=== PATIENT | male | born 1985 | race Caucasian/White ===

== ENCOUNTER 2017-11-03 17:45 | Emergency (ER) | payer SELFPAY ==
[2017-11-03] MEDS ORDERED: Lidocaine 1%* 5 ML VIAL INJ ONE (18:15)
[2017-11-03] MEDS ORDERED: Sulfamethox/Trimethoprim DS 800/160* TAB PO ONE (18:25)
--- NOTE | 2017-11-03 18:25 | ED ---
Skin Complaint - HPI Summary HPI Summary: 32M presents with abscess on neck. He states he has had ta cyst there for 10 years and it has not bothered him. A week ago it started to grow and it burst at work and clear drainage came out. He states it seem to get better and then it got bigger again so he squeezed it and yellow discharge came out. He saw his primary who sent him here for it to be drained. He denies any fever or spreading redness. He has 4/10 pain. He denies any history of MRSA. - History of Current Complaint Chief Complaint: EDGeneral Time Seen by Provider: 11/03/17 17:59 Stated Complaint: ABSCESS ON NECK Pain Intensity: 0 - Allergy/Home Medications Allergies/Adverse Reactions: Allergies Allergy/AdvReac Type Severity Reaction Status Date / Time CRAB Allergy Severe Anaphylatic Uncoded 11/03/17 17:51 Shock PMH/Surg Hx/FS Hx/Imm Hx Endocrine/Hematology History: Denies: Hx Anticoagulant Therapy Cardiovascular History: Denies: Hx Myocardial Infarction Infectious Disease History: No Infectious Disease History: Denies: Traveled Outside the [place] in Last 30 Days - Family History Known Family History: Positive: Hypertension - Social History Alcohol Use: Rare Substance Use Type: Reports: None Type: Cigars Amount Used/How Often: 1 CIGAR A DAY Have You Smoked in the Last Year: Yes Review of Systems Negative: Fever Negative: Chest Pain Negative: Shortness Of Breath Positive: Other - abscess neck All Other Systems Reviewed And Are Negative: Yes Physical Exam Triage Information Reviewed: Yes Vital Signs On Initial Exam: Initial Vitals Temp Pulse Resp BP Pulse Ox 97.0 F 98 18 163/103 99 11/03/17 17:47 11/03/17 17:47 11/03/17 17:47 11/03/17 17:47 11/03/17 17:47 Vital Signs Reviewed: Yes Appearance: Positive: Well-Appearing Skin: Positive: Warm, Dry, Other - 2cm by 4cm abscess with small opening on lateral aspect of right neck Head/Face: Positive: Normal Head/Face Inspection Eyes: Positive: Normal, Conjunctiva Clear Neck: Positive: Supple, No Lymphadenopathy. Negative: Nuchal Rigidity Respiratory/Lung Sounds: Positive: Clear to Auscultation, Breath Sounds Present Cardiovascular: Positive: Normal, RRR Musculoskeletal: Positive: Normal Neurological: Positive: Normal Psychiatric: Positive: Normal Procedures - Incision and Drainage Site: neck Anesthesia: Local Instrument(s): Scalpel Packing: Gauze Diagnostics - Vital Signs Vital Signs Temp Pulse Resp BP Pulse Ox 11/03/17 17:47 97.0 F 98 18 163/103 99 - Laboratory Lab Statement: Any lab studies that have been ordered have been reviewed, and results considered in the medical decision making process. Course/Dx - Course Course Of Treatment: 32M presents with abscess on neck. He states he has had ta cyst there for 10 years and it has not bothered him. A week ago it started to grow and it burst at work and clear drainage came out. He states it seem to get better and then it got bigger again so he squeezed it and yellow discharge came out. He saw his primary who sent him here for it to be drained. He denies any fever or spreading redness. He has 4/10 pain. He denies any history of MRSA. on exam has 2cm by 4cm abscess on right side of neck with small opening present. placed small incision and got 3cc of pus. packed the area. will placed on bactrim until culture comes back and we have follow up in two days for wound check. patient understand and agrees with plan. - Differential Diagnoses - Skin Complaint Differential Diagnoses: Abscess, Cellulitis, Contact Dermatitis - Diagnoses Provider Diagnoses: Abscess Discharge - Discharge Plan Condition: Good Disposition: HOME Prescriptions: Sulfamethox/Trimethoprim DS* [Bactrim DS 800/160 TAB*] 1 tab PO BID #[id number] tab Patient Education Materials: Abscess (ED) Referrals: Non Staff,Doctor [Primary Care Provider] - Additional Instructions: Take antibiotic twice a day for 10 days, first dose given in ED Apply warm compresses to area Take ibuprofen or Tylenol for pain every 6 hours follow up with urgent care or ED in two days for wound recheck Return to ED if develop fever, area of redness spreads, or any new or worsening symptoms
[2017-11-03 19:16] VITALS: BP 148/78
--- NOTE | 2017-11-06 08:59 | ED ---
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 Pt was placed on bactrim s/p abscess I&D on his neck. Per notes, copious drainage emerged on day #1. Returned to ED 2 days ago - packing removed by Dr. Carlisle - in note, wound appears to be healing well. Pt had come in 2nd time w/ nausea - was given zofran and nausea has resolved. Feels better today. Area is still red and packing is no longer in place. Has minimal drainage this morning - no fever, chills, N/V/D. Explained bactrim is not a good antibiotic for his current infection and d/t the fact that packing is no longer in place, will switch to keflex to better cover organism. Pt agrees w/ plan and will f/u w/ PCP if wound is slow to heal. If develops danger s/sx, will return to ED. Keflex e-rx'd to ari. Course/Dx - Course Course Of Treatment: 32M presents with abscess on neck. He states he has had ta cyst there for 10 years and it has not bothered him. A week ago it started to grow and it burst at work and clear drainage came out. He states it seem to get better and then it got bigger again so he squeezed it and yellow discharge came out. He saw his primary who sent him here for it to be drained. He denies any fever or spreading redness. He has 4/10 pain. He denies any history of MRSA. on exam has 2cm by 4cm abscess on right side of neck with small opening present. placed small incision and got 3cc of pus. packed the area. will placed on bactrim until culture comes back and we have follow up in two days for wound check. patient understand and agrees with plan. - Diagnoses Provider Diagnoses: Abscess
== END 2017-11-03 19:19 | disposition home or self-care (01) ==
LOC: ED 17:45
DX: L02.11 Cutaneous abscess of neck (principal); F17.290 Nicotine dependence, other tobacco product, uncomplicated
CPT/HCPCS: 87070; 87076; 87077; 87205; 87640; 87641; 99282; A9270-GY

== ENCOUNTER 2017-11-05 10:41 | Emergency (ER) | payer SELFPAY ==
[2017-11-05 10:55] VITALS: BP 131/82
[2017-11-05] MEDS ORDERED: Ondansetron ODT TAB* 4 MG SL ONE (12:12)
--- NOTE | 2017-11-05 12:53 | ED ---
Skin Complaint - HPI Summary HPI Summary: Patient presents to the ED for a wound re-check of the right neck abscess dx 2 days ago. The area is packed. NO erythema or warmth around the area. Slightly indurated with small wick protruding. He has been taking antibiotics as described and denies any fevers, sweats or chills. No hx of MRSA. He notes to some nausea this morning. Note from 2 days ago by Fabrice Godinez MD: 32M presents with abscess on neck. He states he has had ta cyst there for 10 years and it has not bothered him. A week ago it started to grow and it burst at work and clear drainage came out. He states it seem to get better and then it got bigger again so he squeezed it and yellow discharge came out. He saw his primary who sent him here for it to be drained. He denies any fever or spreading redness. He has 4/10 pain. He denies any history of MRSA. - History of Current Complaint Chief Complaint: EDRashSkinAbscess Time Seen by Provider: 11/05/17 11:35 Stated Complaint: RECHECK ABSCESS Hx Obtained From: Patient Onset/Duration: Started Days Ago Skin Exposure Onset/Duration: Days Ago Timing: Constant Onset Severity: Moderate Current Severity: Moderate Pain Intensity: 1 Pain Scale Used: 0-10 Numeric Skin Location: Discrete - righ side of neck Character: Redness, Raised Aggravating Symptom(s): Nothing Alleviating Symptom(s): Nothing Associated Signs & Symptoms: Nausea - Allergy/Home Medications Allergies/Adverse Reactions: Allergies Allergy/AdvReac Type Severity Reaction Status Date / Time CRAB Allergy Severe Anaphylatic Uncoded 11/03/17 17:51 Shock PMH/Surg Hx/FS Hx/Imm Hx Previously Healthy: Yes Endocrine/Hematology History: Denies: Hx Anticoagulant Therapy Cardiovascular History: Denies: Hx Myocardial Infarction - Immunization History Date of Tetanus Vaccine: unknown Date of Influenza Vaccine: NO Hx Pertussis Vaccination: No Immunizations Up to Date: Unable to Obtain/Confirm Infectious Disease History: No Infectious Disease History: Denies: Traveled Outside the [place] in Last 30 Days - Family History Known Family History: Positive: Hypertension - Social History Occupation: Employed Full-time Lives: With Family Alcohol Use: Rare Hx Substance Use: Yes Substance Use Type: Reports: Marijuana Hx Tobacco Use: No Smoking Status (MU): Former Smoker Type: Cigars Amount Used/How Often: 1 CIGAR A DAY Have You Smoked in the Last Year: Yes Review of Systems Constitutional: Negative Negative: Fever, Chills, Fatigue Eyes: Negative Cardiovascular: Negative Respiratory: Negative Positive: Nausea Genitourinary: Negative Positive: no symptoms reported, see HPI Positive: Other - erythema and induration to the left side of the neck Neurological: Negative All Other Systems Reviewed And Are Negative: Yes Physical Exam Triage Information Reviewed: Yes Vital Signs On Initial Exam: Initial Vitals Temp Pulse Resp BP Pulse Ox 97.9 F 61 20 131/82 97 11/05/17 10:52 11/05/17 10:52 11/05/17 10:52 11/05/17 10:52 11/05/17 10:52 Vital Signs Reviewed: Yes Appearance: Positive: Well-Appearing, Well-Nourished Skin: Positive: Warm, Skin Color Reflects Adequate Perfusion, Other - left neck abscess with wick. slight erythema with no warmth. Indurated Head/Face: Positive: Normal Head/Face Inspection Eyes: Positive: EOMI, JOSHUA, Conjunctiva Clear Neck: Positive: Supple, No Lymphadenopathy Respiratory/Lung Sounds: Positive: Clear to Auscultation, Breath Sounds Present Cardiovascular: Positive: RRR, Pulses are Symmetrical in both Upper and Lower Extremities Musculoskeletal: Positive: Strength/ROM Intact Neurological: Positive: Speech Normal Psychiatric: Positive: Normal, Affect/Mood Appropriate - [place] Coma Scale Coma Scale Total: 15 Diagnostics - Vital Signs Vital Signs Temp Pulse Resp BP Pulse Ox 11/05/17 10:52 97.9 F 61 20 131/82 97 - Laboratory Lab Statement: Any lab studies that have been ordered have been reviewed, and results considered in the medical decision making process. Course/Dx - Course Course Of Treatment: Patient was evaluated for right sided nck abscess measuring 2x2. Slightly erythematous and indurated. Wick pulled with no drainage. Patient states the area drained copious amounts of fluid the first day. Denies fevers, sweats or chills. The area is healing well with no drainage and will leave with bandage applied over the area without repacking. Continue antibiotics. Patient denies any concerns and will follow up as needed. Given zofran in the ED for nausea. - Differential Diagnoses - Skin Complaint Differential Diagnoses: Abscess - Diagnoses Provider Diagnoses: Abscess Discharge - Discharge Plan Condition: Stable Disposition: HOME Patient Education Materials: Abscess (ED) Forms: *Work Release Referrals: Non Staff,Doctor [Primary Care Provider] - Additional Instructions: Please follow up with your PCP If any symptoms become worse, you need to return to the ED If you develop redness, streaks of red around the wound, swelling, abnormal drainage or you develop a fever - you need to come back to the ED right away. Use the dressing for any drainage. Otherwise, you may leave open to air Continue with your antibiotic as prescribed If you are unable to keep the antibiotics down, you need to return, as this medication is very important for the improvement of the abscess.
== END 2017-11-05 12:20 | disposition home or self-care (01) ==
LOC: ED 10:41
DX: L02.11 Cutaneous abscess of neck (principal); Z87.891 Personal history of nicotine dependence
CPT/HCPCS: 99281; A9270-GY